=== PATIENT | male | born 1975 | race Caucasian/White ===

== ENCOUNTER 2024-09-09 15:51 | Emergency (ER) | payer MEDICAID ==
[~2024-09-09] VITALS: Ht 175.3 cm; Wt 73.9 kg
[2024-09-09 17:10] LABS: BASOPHILS # (AUTO) 0.1 K/uL (0.0-0.2); BASOPHILS % (AUTO) 0.8 % (0.0-2.0); EOSINOPHILS # (AUTO) 0.1 K/uL (0.0-0.7); EOSINOPHILS % (AUTO) 1.1 % (0.0-6.0); HEMATOCRIT 47 % (39-51); HEMOGLOBIN 15.8 g/dL (13.5-17.5); LYMPHOCYTES # (AUTO) 8.5 K/uL (0.8-4.8); LYMPHOCYTES % (AUTO) 66.5 % (20.0-44.0); MEAN CORPUSCULAR HEMOGLOBIN 30 PG (26.0-33.0); MEAN CORPUSCULAR HGB CONC 33 g/dl (31.0-36.0); MEAN CORPUSCULAR VOLUME 90 fL (80-96); MONOCYTES # (AUTO) 0.4 K/uL (0.1-1.30); MONOCYTES % (AUTO) 2.9 % (2.0-12.0); NEUTROPHILS # (AUTO) 3.7 K/uL (1.8-8.9); NEUTROPHILS % (AUTO) 28.7 % (43.0-81.0); PLATELET COUNT (AUTO) 103 K/uL (150-450); RED BLOOD CELL COUNT(AUTO) 5.28 MIL/uL (4.5-6.0); RED CELL DISTRIBUTION WIDTH 14.8 % (11.5-15.0); WHITE BLOOD COUNT (AUTO) 12.7 K/uL (4.3-11.0)
[2024-09-09 17:22] LABS: CALCIUM, SERUM 9.3 mg/dL (8.5-10.1); CARBON DIOXIDE 29 mmol/L (21-32); CHLORIDE 103 mmol/L (98-107); CREATININE 0.9 mg/dL (0.6-1.3); GLUCOSE 246 mg/dL (74-106); POTASSIUM 4.6 mmol/L (3.5-5.1); SODIUM SERUM 138 mmol/L (136-145); UREA NITROGEN, BLOOD 13 mg/dL (7-18)
[2024-09-09 17:35] LABS: ALANINE AMINOTRANSFERASE 74 U/L (12-78); ALBUMIN 3.5 g/dL (3.4-5.0); ALKALINE PHOSPHATASE 82 U/L (46-116); ASPARTATE AMINOTRANSFERASE 50 U/L (15-37); BILIRUBIN,DIRECT 0.2 mg/dL (0.0-0.2); BILIRUBIN,TOTAL 0.7 mg/dL (0.2-1.0); NT-PRO BNP 102 pg/mL (0-125)
[2024-09-09] MEDS ORDERED: IBUPROFEN 600 MG TABLET ONE (18:03)
[2024-09-09] MEDS: IBUPROFEN 600 MG TABLET PO ONE (18:08)
[2024-09-09 18:37] LABS: ANISOCYTOSIS 1+; MONOCYTES % (MANUAL) 3 % (0-11.0); NEUTROPHILS % (MANUAL) 25 (42-76); PLATELET ESTIMATE DECRE
[2024-09-09 18:38] LABS: TEAR DROP CELLS 1+
[2024-09-09 18:39] LABS: ROULEAUX 1+
[2024-09-09 18:44] LABS: LYMPHOCYTES % (MANUAL) 72 % (16-48)
[2024-09-09 19:36] VITALS: BP 124/88; TEMP 98.3; O2SAT 97
== END 2024-09-09 19:37 | disposition home or self-care (01) ==
LOC: ER 15:55
DX: R07.89 Other chest pain (principal); E11.9 Type 2 diabetes mellitus without complications; I10 Essential (primary) hypertension
CPT/HCPCS: 99285; 93005; 71045; 85025; 80048; 80076; 85007; 36415; 85060; 84484; 83880; A6403

== ENCOUNTER 2024-10-06 17:34 | Emergency (ER) | payer MEDICAID ==
[~2024-10-06] VITALS: Ht 175.3 cm; Wt 74.8 kg
[2024-10-07 13:00] VITALS: BP 125/72; TEMP 97.8; O2SAT 100
== END 2024-10-07 13:54 | disposition home or self-care (01) ==
LOC: ER 17:43
DX: G89.29 Other chronic pain (principal); M25.561 Pain in right knee; E11.9 Type 2 diabetes mellitus without complications; I10 Essential (primary) hypertension; Z59.01 Sheltered homelessness